=== PATIENT | female | born 1990 ===

== ENCOUNTER 2019-01-08 02:24 | Emergency (ER) | payer MEDICAID, OTHER ==
[2019-01-08 02:37] VITALS: BMI 34.9
[2019-01-08 02:40] VITALS: RESP 18
--- NOTE | 2019-01-08 03:02 | ED PDOC ---
Upper Extremity Pain/Injury Time Seen by Provider: 01/08/19 02:40 Chief Complaint (Nursing): Upper Extremity Problem/Injury Chief Complaint (Provider): Upper Extremity Problem History Per: Patient History/Exam Limitations: no limitations Onset/Duration Of Symptoms: Hrs Additional Complaint(s): 28 year old female presents to ED with chest tightness that radiates to left arm since 1 AM. Patient states that around 1:00 she was awaken by sense of chest tightness. The chest pain is described as worse with deep breathing and inhalation. While she has had similar symptoms with anxiety in the past, this episode felt different. Patient denies nausea, vomiting, diaphoresis. PMD: Keny Sheppard Past Medical History Reviewed: Historical Data, Nursing Documentation, Vital Signs Vital Signs: Last Vital Signs Temp 98.6 F 01/08/19 02:38 Pulse 89 01/08/19 02:38 Resp 18 01/08/19 02:38 BP 130/89 01/08/19 02:38 Pulse Ox 98 01/08/19 02:38 Primary Care Provider: Keny Sheppard - Medical History PMH: Anemia, Anxiety, Asthma, Hypothyroidism, Sexually Transmitted Disease (gonorrheal infection) - Family History Family History: States: Unknown Family Hx - Immunization History Hx Tetanus Toxoid Vaccination: No Hx Influenza Vaccination: No Hx Pneumococcal Vaccination: No - Home Medications Home Medications: Ambulatory Orders Medication Instructions Recorded Albuterol HFA [Ventolin HFA 90 2 puff IH [id number] PRN 11/19/18 mcg/actuation (8 g)] Cyclobenzaprine [Cyclobenzaprine 10 mg PO TID #15 tab 11/19/18 HCl] Ibuprofen [Motrin Tab] 600 mg PO Q8 #30 tab 11/19/18 traMADol [Ultram] 50 mg PO Q6 #10 tab 11/19/18 Naproxen [Naprosyn] 500 mg PO Q12 #14 tab 01/08/19 - Allergies Allergies/Adverse Reactions: Allergies Allergy/AdvReac Type Severity Reaction Status Date / Time No Known Allergies Allergy Verified 01/08/19 02:36 Review of Systems ROS Statement: Except As Marked, All Systems Reviewed And Found Negative Constitutional: Negative for: Sweats Cardiovascular: Positive for: Chest Pain (tightness) Gastrointestinal: Negative for: Nausea, Vomiting Neurological: Positive for: Numbness Physical Exam - Reviewed Nursing Documentation Reviewed: Yes Vital Signs Reviewed: Yes - Physical Exam Appears: Positive for: No Acute Distress Head Exam: Positive for: ATRAUMATIC, NORMAL INSPECTION, NORMOCEPHALIC Skin: Positive for: Normal Color, Warm, Dry Eye Exam: Positive for: EOMI, Normal appearance, PERRL ENT: Positive for: Normal ENT Inspection Neck: Positive for: Normal, Painless ROM, Supple Cardiovascular/Chest: Positive for: Regular Rate, Rhythm. Negative for: Murmur Respiratory: Positive for: Normal Breath Sounds. Negative for: Respiratory Distress Gastrointestinal/Abdominal: Positive for: Normal Exam, Soft. Negative for: Tenderness Back: Positive for: Normal Inspection. Negative for: L CVA Tenderness, R CVA Tenderness, Vertebral Tenderness Extremity: Positive for: Normal ROM. Negative for: Pedal Edema, Deformity Neurological/Psych: Positive for: Alert, Oriented (x3). Negative for: Motor/Sensory Deficits - Laboratory Results Result Diagrams: 01/08/19 03:30 01/08/19 03:30 - ECG O2 Sat by Pulse Oximetry: 98 (RA) Pulse Ox Interpretation: Normal Medical Decision Making Medical Decision Making: Time: 257 Initial Impression: 28 year old female with Initial Plan: --Labs --EKG --CXR --Toradol 0415 Labs reviewed show no clinically significant outcomes except for elevated D- dimer so CT chest angio ordered 605 CT Chest FINDINGS: Normal enhancement of the main pulmonary artery and right and left pulmonary arteries. Normal enhancement of the bilateral peripheral pulmonary arteries. There is no demonstrated pulmonary embolism. Normal thoracic aorta and visualized great vessels. There is no demonstrated aortic dissection. Normal heart and pericardium. Normal mediastinum. Normal hilar regions. Normal visualized trachea and bronchi. The lungs are well expanded. Normal pulmonary parenchyma. Normal pleura. Normal chest wall structures. Mild chronic changes of Scheuermann's disease. Normal visualized upper abdomen. IMPRESSION: No demonstrated pulmonary embolism or arterial dissection. 06 Patient verbalized improvement to provider and is medically stable for discharge Scribe Attestation: Documented by Reagan Tyson acting as a scribe for Scottie Bell MD. Provider Scribe Attestation: All medical record entries made by the Scribe were at my direction and personally dictated by me. I have reviewed the chart and agree that the record accurately reflects my personal performance of the history, physical exam, medical decision making, and the department course for this patient. I have also personally directed, reviewed, and agree with the discharge instructions and disposition. Disposition - Clinical Impression Clinical Impression: Pleuritic chest pain - Disposition Referrals: Keny Sheppard MD [Primary Care Provider] - Disposition: Routine/Home Disposition Time: 06:22 Condition: STABLE Prescriptions: Naproxen [Naprosyn] 500 mg PO Q12 #14 tab Instructions: Pleuritic Chest Pain Forms: [employer] [facility] ([place])
[2019-01-08 03:47] LABS: BASO % 0.7 % (0.0-2.0); EOS % 0.8 % (0.0-4.0); HEMOGLOBIN 12.6 g/dL (12.0-16.0); LYMPH # 1.7 K/uL (1.0-4.3); LYMPH % 28.1 % (20.0-40.0); MEAN CORPUSCULAR HEMOGLOBIN 27.5 pg (27.0-31.0); MEAN CORPUSCULAR HGB CONC 33.5 g/dL (33.0-37.0); MEAN PLATELET VOLUME 7.5 fl (7.2-11.7); MONO # 0.3 K/uL (0.0-0.8); MONO % 5.7 % (0.0-10.0); NEUT # 3.9 K/uL (1.8-7.0); NEUT % 64.7 % (50.0-75.0); NRBC % 0.1 % (0.0-0.0); RBC 4.59 Mil/uL (3.80-5.20); RED CELL DISTRIBUTION WIDTH 15.4 % (11.5-14.5); WHITE BLOOD COUNT 6.1 K/uL (4.8-10.8)
[2019-01-08 03:48] LABS: ALB/GLOB RATIO 1.4 (1.0-2.1); ALBUMIN 4.4 g/dL (3.5-5.0); ALT/SGPT 23 U/L (9-52); AST/SGOT 30 U/L (14-36); BLOOD UREA NITROGEN 12 mg/dl (7-17); CALCIUM 8.7 mg/dL (8.4-10.2); GFR NON-AFRICAN AMERICAN > 60
[2019-01-08] MEDS ORDERED: Iodixanol 320 MG/ML 100 ML BOTTLE IV ONE (04:39)
[2019-01-08] MEDS ORDERED: Sodium Chloride 0.9% 50 ML IV ONE (04:39)
[2019-01-08 06:54] VITALS: BP 124/81; PULSE 82; TEMP 98.4; O2SAT 99
--- NOTE | 2019-01-08 10:37 | CARD ---
APPROVED REPORT Date of service: 01/08/2019 EKG Measurement Heart [id number] <Conclusion> Normal sinus rhythm Normal ECG
--- NOTE | 2019-01-08 11:31 | RAD ---
Date of service: 01/08/2019 HISTORY: Chest pain/left-sided body pain. COMPARISON: No prior. FINDINGS: LUNGS: No active pulmonary disease. PLEURA: No significant pleural effusion identified, no pneumothorax apparent. CARDIOVASCULAR: No atherosclerotic calcification present Normal. OSSEOUS STRUCTURES: No significant abnormalities. VISUALIZED UPPER ABDOMEN: Normal. OTHER FINDINGS: None. IMPRESSION: No active disease.
--- NOTE | 2019-01-08 13:07 | CT ---
Date of service: 01/08/2019 PROCEDURE: CT Chest with contrast (Pulmonary Angiogram) HISTORY: Chest pain; rule out PE. COMPARISON: None available. TECHNIQUE: Axial computed tomography images were obtained of the chest in the pulmonary arterial phase of enhancement. Coronal and sagittal reformatted images were created and reviewed. Intravenous contrast dose: Radiation dose: Total exam DLP = 292.83 mGy-cm. This CT exam was performed using one or more of the following dose reduction techniques: Automated exposure control, adjustment of the mA and/or kV according to patient size, and/or use of iterative reconstruction technique. FINDINGS: PULMONARY ARTERIES: The visualized pulmonary trunk, left and right main, lobar, segmental and proximal subsegmental branches of the pulmonary arteries are relatively well opacified with no definitive filling defects seen to suggest acute central pulmonary embolus. AORTA: No acute findings. No thoracic aortic aneurysm. No aortic atherosclerotic calcification or mural plaque present. LUNGS: Unremarkable. No nodule, mass or pulmonary consolidation. PLEURAL SPACES: Unremarkable. No effusion or pneumothorax. HEART: Unremarkable. No cardiomegaly. No significant pericardial effusion. LYMPH NODES: No lymphadenopathy. BONES, CHEST WALL: Unremarkable. No fracture or destructive lesion OTHER FINDINGS: Unremarkable. IMPRESSION: Unremarkable CT pulmonary angiogram. No pulmonary embolus.
== END 2019-01-08 06:53 | disposition home or self-care (01) ==
LOC: H.ER 02:24
DX: R07.81 Pleurodynia (principal); E03.9 Hypothyroidism, unspecified
CPT/HCPCS: 71045; 71275; 80053; 84484; 85025; 85378; 93005; 96374; 99284; J1885; Q9967